=== PATIENT | female | born 1980 | race Caucasian/White ===

== ENCOUNTER → 2016-12-22 | Outpatient (CLI) | payer BC | LOC: MW.CHGS 16:51 | PROVIDERS: ATTEND Surgery | DX: N61.1 Abscess of the breast and nipple (principal) | CPT/HCPCS: 87070; 87205 ==

== ENCOUNTER 2025-01-06 13:36 | Observation (INO) | payer BC, OTHER ==
[2025-01-06] MEDS ORDERED: Bupivacaine 0.5% 30 ML SDV ONE (13:55)
[2025-01-06] MEDS ORDERED: Propofol 200 MG/20 ML SDV ONE (14:01)
[2025-01-06] MEDS ORDERED: Sodium Chloride 0.9% 20 ML ONE (14:02)
[2025-01-06] MEDS ORDERED: dexmedeTOMIDine HCl 200 MCG/2 ML SDV ONE (14:02)
[2025-01-06] MEDS ORDERED: fentaNYL 100 MCG/2 ML SDV ONE (14:04)
[2025-01-06] MEDS ORDERED: Acetaminophen/oxyCODONE 325-5 MG Tab PO PRN (14:19)
[2025-01-06] MEDS ORDERED: diphenhydrAMINE 50 MG/ML SDV IVPUSH PRN (14:19)
[2025-01-06] MEDS ORDERED: Ondansetron 4 MG/2 ML SDV IVPUSH PRN (14:19)
[2025-01-06 14:42] LABS: BASOPHILS ABSOLUTE AUTO 0.04 K/uL (0.00-0.20); BASOPHILS PERCENT AUTO 0.3 % (0.0-1.0); EOSINOPHILS ABSOLUTE AUTO 0.05 K/uL (0.00-0.45); EOSINOPHILS PERCENT AUTO 0.4 % (0.0-6.0); HEMATOCRIT 35.6 % (37.0-47.0); HEMOGLOBIN 11.9 g/dL (12.0-16.0); IMMATURE GRAN ABSOLUTE AUTO 0.05 K/uL (0.00-0.05); IMMATURE GRAN PERCENT AUTO 0.4 % (0.0-0.4); LYMPHOCYTES ABSOLUTE AUTO 2.87 K/uL (1.00-4.80); LYMPHOCYTES PERCENT AUTO 22.5 % (24.0-44.0); MEAN CORPUSCULAR HEMOGLOBIN 29.3 pg (28.0-32.0); MEAN CORPUSCULAR HGB CONC 33.4 g/dL (32.0-36.0); MEAN CORPUSCULAR VOLUME 87.7 fL (83.0-99.0); MEAN PLATELET VOLUME 8.8 fL (9.4-12.3); MONOCYTES PERCENT AUTO 6.3 % (0.0-8.0); NEUTROPHILS ABSOLUTE AUTO 8.97 K/uL (1.80-7.70); NEUTROPHILS PERCENT AUTO 70.1 % (41.0-71.0); PLATELET COUNT,PLT 301 K/uL (150-400); RED BLOOD CELL COUNT 4.06 M/uL (4.10-5.30); WHITE BLOOD CELL COUNT,WBC 12.78 K/uL (3.9-11.3)
[2025-01-06 15:02] LABS: A/G RATIO 0.7 (0.9-1.6); ALANINE AMINOTRANSFERASE,ALT 11 IU/L (14-63); ALBUMIN 3.4 g/dL (3.4-5.0); ALKALINE PHOSPHATASE 69 U/L (46-116); ASPARTATE AMNIOTRANSFERASE,AST 3 IU/L (15-37); BILIRUBIN TOTAL 0.5 mg/dL (0.2-1.0); BLOOD UREA NITROGEN,BUN 13 mg/dL (7.0-18.0); CALCIUM 8.8 mg/dL (8.5-10.1); CARBON DIOXIDE,CO2 24.9 mmol/L (21.0-32.0); CHLORIDE,CL 100 mmol/L (98-107); CREATININE 0.9 mg/dL (0.6-1.0); GLUCOSE RANDOM 98 mg/dL (74-106); POTASSIUM,K 3.7 mmol/L (3.5-5.1); PROTEIN TOTAL,TP 8.1 g/dL (6.4-8.2); SODIUM,NA 135 mmol/L (136-145)
[2025-01-06 15:03] LABS: ESTIMATED GFR 80 mL/min (>60)
[2025-01-06] MEDS: Ketorolac 30 MG/ML SDV IVPUSH SCH (15:05)
[2025-01-06] MEDS ORDERED: Rocuronium Bromide 50 MG/5 ML Syringe ONE (15:09)
[2025-01-06] MEDS: Clindamycin Phosphate in D5W 600 MG in Premix Bag 1 BAG IV SCH (15:12)
[2025-01-06] MEDS ORDERED: Ondansetron 4 MG/2 ML SDV ONE (15:22)
[2025-01-06] MEDS ORDERED: Dexamethasone 4 MG/ML 5 ML MDV ONE (15:22)
[2025-01-06] MEDS ORDERED: Ketorolac 30 MG/ML SDV ONE (15:29)
[2025-01-06] MEDS ORDERED: Sugammadex Sodium 200 MG/2 ML VIAL IV ONE (15:29)
[2025-01-06] MEDS: Lactated Ringers 1,000 ML IV SCH (17:49)
[2025-01-07 05:53] LABS: HEMATOCRIT 33.9 % (37.0-47.0); HEMOGLOBIN 11.2 g/dL (12.0-16.0); MEAN CORPUSCULAR HEMOGLOBIN 28.9 pg (28.0-32.0); MEAN CORPUSCULAR VOLUME 87.4 fL (83.0-99.0); MEAN PLATELET VOLUME 8.8 fL (9.4-12.3); PLATELET COUNT,PLT 298 K/uL (150-400); RED BLOOD CELL COUNT 3.88 M/uL (4.10-5.30); WHITE BLOOD CELL COUNT,WBC 11.09 K/uL (3.9-11.3)
[2025-01-07] MEDS: HYDROmorphone 2 MG/ML Syringe IVPUSH PRN (08:40)
[2025-01-07] MEDS: Losartan 50 MG Tab PO SCH (09:57)
[2025-01-07 10:29] VITALS: BP 108/64; PULSE 70
[2025-01-07] MEDS ORDERED: Ketorolac 30 MG/ML SDV IVPUSH SCH (13:30)
== END 2025-01-07 10:05 | disposition home or self-care (01) ==
LOC: MW.MS 13:36
PROVIDERS: ADMIT Surgery; ATTEND Surgery
DX: N61.1 Abscess of the breast and nipple (principal); Z79.899 Other long term (current) drug therapy
CPT/HCPCS: 19020; 36415; 80053; 84703; 85025; 85027; 87070; 87075; 87077; 87186; 87205; J0665; J0736; J1100; J1171; J1885; J2405; J2704; J3010; J7120; 00400; J3490